=== PATIENT | female | born 1975 | race Caucasian/White ===

== ENCOUNTER 2016-12-05 14:50 | Emergency (ER) | payer BC, OTHER ==
[~2016-12-05] VITALS: Ht 170.1 cm; Wt 72.6 kg
[~2016-12-05 14:50] MED LIST: ALBUTEROL0.09 MG/A2 IH; ALBUTEROL0.09 MG/A2 INH; AUGMENTIN 875875 MG PO; BACTRIM DS 8001 TA1 PO; BIAXIN500 MG PO; CLINDAMYCIN HC300 MG PO; DELTASONE20 MG PO; FLEXERIL10 MG PO; Motrin,Rufen800 MG PO; NAPROSYN500 MG PO; NASONEX0.05 MG/AC NS; NKHM; NO DAILY MEDS; PENICILLIN250 MG PO; PYRIDIUM100 MG PO; TESSALON PERLE200 MG PO; ZITHROMAX Z PA250 MG PO; ZITHROMAX Z-PA250 MG PO; ZITHROMAX250 MG PO
[2016-12-05] MEDS ORDERED: NAPROSYN500 MG PO (16:44)
[2016-12-05] MEDS ORDERED: PREDNISONE20 M1 PO (16:44)
== END 2016-12-05 16:54 | disposition home or self-care (01) ==
LOC: ED 14:50
DX: R09.1 Pleurisy (principal); F17.200 Nicotine dependence, unspecified, uncomplicated

== ENCOUNTER 2017-04-10 21:42 | Emergency (ER) | payer BC, OTHER ==
[~2017-04-10] VITALS: Ht 170.1 cm; Wt 72.6 kg
[~2017-04-10 21:42] MED LIST changes: +PREDNISONE20 M1 PO
[2017-04-10 22:46] LABS: BASO % 0.4 % (0.0-1.0); EOS # 0.3 10*3/uL (0.0-0.4); EOS % 3.3 % (1.0-4.0); HEMATOCRIT 38.6 % (37.0-47.0); HEMOGLOBIN 13.2 g/dl (12.0-16.0); LYMPH # 2.6 10*3/uL (1.3-4.4); LYMPH % 32.9 % (27.0-41.0); MEAN CELL VOLUME 90.6 fl (81.0-99.0); MEAN CORPUSCULAR HGB CONC 34.2 g/dl (33.0-37.0); MEAN PLATELET VOLUME 10.8 fl (9.6-12.3); MONO # 0.7 10*3/uL (0.1-1.0); MONO % 8.3 % (3.0-9.0); NEUT # 4.3 10*3/uL (2.3-7.9); PLATELET COUNT AUTOMATED 237 10*3/uL (130-400); RED BLOOD COUNT 4.26 10*6/uL (4.10-5.10); RED CELL DISTRI WIDTH 12.8 % (0-14.5); WHITE BLOOD COUNT 7.8 10*3/uL (4.8-10.8)
[2017-04-10 23:09] LABS: ALBUMIN 3.7 gm/dl (3.1-4.5); ALKALINE PHOSPHATASE 121 U/L (45-117); BUN 11 mg/dl (7-24); CHLORIDE 105 mmol/L (98-107); CREATININE 0.96 mg/dL (0.55-1.02); POTASSIUM 3.5 mmol/L (3.5-5.1); SGOT/AST 18 IU/L (3-35); SGPT/ALT 14 U/L (12-78); SODIUM 139 mmol/L (136-145); TOTAL PROTEIN 7.2 gm/dL (6.4-8.2)
[2017-04-10 23:10] LABS: TROPONIN I < 0.015 ng/ml (<0.045)
[2017-04-10] MEDS ORDERED: PROAIR HFA8.5 GM INH (23:53)
[2017-04-10] MEDS ORDERED: NORCO 5-325 TA1 EACH PO (23:53)
[2017-04-10] MEDS ORDERED: PREDNISONE10 MG PO (23:53)
== END 2017-04-11 00:19 | disposition home or self-care (01) ==
LOC: ED 21:42
PROVIDERS: Emergency Medicine Emergency Medical Services
DX: J40 Bronchitis, not specified as acute or chronic (principal); R05 Cough; R10.9 Unspecified abdominal pain; F17.200 Nicotine dependence, unspecified, uncomplicated

== ENCOUNTER 2017-04-20 18:04 | Emergency (ER) | payer OTHER, BC ==
[~2017-04-20] VITALS: Ht 165.1 cm; Wt 63.5 kg
[~2017-04-20 18:04] MED LIST changes: +NORCO 5-325 TA1 EACH PO; +PREDNISONE10 MG PO; +PROAIR HFA8.5 GM INH
[2017-04-20 18:25] LABS: BASO % 0.2 % (0.0-1.0); EOS # 0.2 10*3/uL (0.0-0.4); EOS % 1.3 % (1.0-4.0); HEMOGLOBIN 12.6 g/dl (12.0-16.0); LYMPH % 28.7 % (27.0-41.0); MEAN CELL VOLUME 90.5 fl (81.0-99.0); MEAN CORPUSCULAR HGB 30.8 pg (27.0-31.0); MEAN CORPUSCULAR HGB CONC 34.1 g/dl (33.0-37.0); MEAN PLATELET VOLUME 10.2 fl (9.6-12.3); MONO # 0.9 10*3/uL (0.1-1.0); MONO % 6.3 % (3.0-9.0); NEUT # 8.7 10*3/uL (2.3-7.9); NEUT % 62.6 % (47.0-73.0); PLATELET COUNT AUTOMATED 289 10*3/uL (130-400); RED BLOOD COUNT 4.09 10*6/uL (4.10-5.10); RED CELL DISTRI WIDTH 13.4 % (0-14.5); WHITE BLOOD COUNT 13.9 10*3/uL (4.8-10.8)
[2017-04-20 18:40] LABS: ALBUMIN 3.4 gm/dl (3.1-4.5); ALKALINE PHOSPHATASE 115 U/L (45-117); BUN 14 mg/dl (7-24); CHLORIDE 106 mmol/L (98-107); CREATININE 0.79 mg/dL (0.55-1.02); LIPASE 167 U/L (73-393); MAGNESIUM 2.2 mg/dL (1.5-2.1); POTASSIUM 3.5 mmol/L (3.5-5.1); SGOT/AST 11 IU/L (3-35); SGPT/ALT 12 U/L (12-78); SODIUM 142 mmol/L (136-145); TOTAL PROTEIN 6.6 gm/dL (6.4-8.2)
[2017-04-20 18:41] LABS: TROPONIN I < 0.015 ng/ml (<0.045)
[2017-04-20] MEDS ORDERED: GUAIFENESIN AC473 M1 PO (20:27)
[2017-04-20] MEDS ORDERED: LEVAQUIN750 M1 PO (20:27)
== END 2017-04-20 21:46 | disposition home or self-care (01) ==
LOC: ED 18:04
PROVIDERS: Nurse Practitioner Family
DX: J18.9 Pneumonia, unspecified organism (principal); R09.1 Pleurisy

== ENCOUNTER → 2018-04-25 | Outpatient (CLI) | payer OTHER, BC ==
[~2018-04-25] MED LIST changes: +GUAIFENESIN AC473 M1 PO; +LEVAQUIN750 M1 PO
== END | disposition home or self-care (01) ==
LOC: MRI 09:50
DX: S46.911A Strain of unspecified muscle, fascia and tendon at shoulder and upper arm level, right arm, initial encounter (principal); M75.51 Bursitis of right shoulder; X58.XXXA Exposure to other specified factors, initial encounter; Y93.89 Activity, other specified; Y92.89 Other specified places as the place of occurrence of the external cause; Y99.8 Other external cause status

== ENCOUNTER 2018-10-05 21:10 | Emergency (ER) | payer OTHER, BC ==
[~2018-10-05] VITALS: Ht 170.1 cm; Wt 81.6 kg
[2018-10-05] MEDS ORDERED: PROAIR HFA8.5 GM INH (22:41)
[2018-10-05] MEDS ORDERED: CEFDINIR300 MG PO (22:41)
[2018-10-05] MEDS ORDERED: PREDNISONE10 MG PO (22:41)
[2018-10-05] MEDS ORDERED: Motrin,Rufen800 MG PO (22:41)
== END 2018-10-05 23:57 | disposition home or self-care (01) ==
LOC: ED 21:10
DX: J20.9 Acute bronchitis, unspecified (principal); F17.298 Nicotine dependence, other tobacco product, with other nicotine-induced disorders; Z98.890 Other specified postprocedural states; Z79.899 Other long term (current) drug therapy